=== PATIENT | female | born 1955 | race Asian ===

== ENCOUNTER → 2016-11-25 | Outpatient (CLI) | payer OTHER | LOC: BRMIMAGING 14:48 | DX: Z12.31 Encounter for screening mammogram for malignant neoplasm of breast (principal) | CPT/HCPCS: G0202 ==

== ENCOUNTER → 2018-01-06 | Outpatient (CLI) | payer OTHER | LOC: BRMIMAGING 15:02 | DX: Z12.31 Encounter for screening mammogram for malignant neoplasm of breast (principal) ==

== ENCOUNTER → 2018-01-29 | Outpatient (CLI) | payer OTHER | LOC: BRMIMAGING 08:39 | DX: R92.8 Other abnormal and inconclusive findings on diagnostic imaging of breast (principal) | CPT/HCPCS: 76641-PO ==

== ENCOUNTER → 2018-08-09 | Outpatient (CLI) | payer BC, OTHER | LOC: BRMIMAGING 09:43 | DX: N63.11 Unspecified lump in the right breast, upper outer quadrant (principal) | CPT/HCPCS: 76641-PO ==

== ENCOUNTER → 2019-01-07 | Outpatient (CLI) | payer OTHER, BC | LOC: BRMIMAGING 08:16 ==